=== PATIENT | female | born 1975 ===

== ENCOUNTER 2016-06-25 23:48 | Emergency (ER) | payer OTHER ==
[2016-06-26 00:19] VITALS: BMI 31.3
[2016-06-26 00:21] VITALS: PULSE 95; RESP 18; TEMP 98.6; O2SAT 98
--- NOTE | 2016-06-26 00:25 | ED PDOC ---
Arrival/HPI - General Time Seen by Provider: 06/25/16 23:59 Historian: Patient - History of Present Illness Narrative History of Present Illness (Text): 06/26/16 00:23 This 41 yo female presents to this ED c/o right knee pain x HIRED HAND. Patient stated she slipped and fellt down on her right side. Patient stated she twisted her right knee. Denies head injury, neck pain, loc, back pain, hip pain, or ankle pain. Denies syncope, dizziness, or sob. Time/Duration: Prior to Arrival Context: Work Past Medical History - Provider Review Nursing Documentation Reviewed: Yes - Psychiatric Hx Substance Use: No Family/Social History - Physician Review Nursing Documentation Reviewed: Yes Family/Social History: No Known Family HX Smoking Status: Never Smoked Hx Alcohol Use: No Hx Substance Use: No Allergies/Home Meds Allergies/Adverse Reactions: Allergies No Known Allergies Allergy (Verified 06/26/16 00:18) Review of Systems - Review of Systems Constitutional: Normal. absent: Fatigue, Weight Change, Fevers Eyes: Normal ENT: Normal Respiratory: Normal Cardiovascular: Normal Gastrointestinal: Normal Genitourinary Female: Normal Musculoskeletal: Other ((+) righ knee pain) Skin: Normal Neurological: Normal Endocrine: Normal Hemo/Lymphatic: Normal Psychiatric: Normal Physical Exam Vital Signs Temp Pulse Resp BP Pulse Ox 06/26/16 00:19 98.6 F 95 H 18 127/54 L 98 Temperature: Afebrile Blood Pressure: Normal Pulse: Regular Respiratory Rate: Normal Appearance: Positive for: Well-Appearing, Non-Toxic, Comfortable Pain Distress: None Mental Status: Positive for: Alert and Oriented X 3 - Systems Exam Head: Present: Atraumatic, Normocephalic, Other (no raccoon sign. no escamilla sign) Pupils: Present: PERRL, Other (no hyphema) Extroacular Muscles: Present: EOMI Conjunctiva: Present: Normal Ears: Present: Normal, NORMAL TM, Normal Canal, Other (no hemotympanum). No: Erythema, TM Bulging, Fluid, TM Perf Mouth: Present: Moist Mucous Membranes Pharnyx: Present: Normal. No: ERYTHEMA, EXUDATE, TONSILS ENLARGED Nose (External): Present: Atraumatic Nose (Internal): Present: Normal Inspection Neck: Present: Normal Range of Motion, Trachea Midline. No: Meningeal Signs, MIDLINE TENDERNESS, Paraspinal Tenderness, Lymphadenopathy Respiratory/Chest: Present: Clear to Auscultation, Good Air Exchange. No: Respiratory Distress, Accessory Muscle Use, Wheezes, Retracting, Tender to Palpation Cardiovascular: Present: Regular Rate and Rhythm, Normal S1, S2. No: Murmurs Abdomen: Present: Normal Bowel Sounds. No: Tenderness, Distention, Peritoneal Signs Back: Present: Normal Inspection. No: CVA Tenderness Upper Extremity: Present: Normal Inspection, Normal ROM, NORMAL PULSES, Neurovascularly Intact, Capillary Refill < 2s. No: Cyanosis, Edema Lower Extremity: Present: Normal Inspection, NORMAL PULSES, Tenderness ((+) mild right anterior knee tenderness, No swelling, erythema, ecchymosis, or abrasion. ROM is reduced on right knee due to pain. noseptic knee joint.), Neurovascularly Intact, Capillary Refill < 2 s. No: Edema, Erythema, Deformity Neurological: Present: GCS=15, CN II-XII Intact, Speech Normal Skin: Present: Warm, Dry, Normal Color. No: Rashes Psychiatric: Present: Alert, Oriented x 3, Normal Insight, Normal Concentration Medical Decision Making ED Course and Treatment: 06/26/16 01:52 Patient is resting comfortably, and is in no acute distress. Patient was instructed to follow up with PMD in 1-2 days for further evaluation. Re-evaluation Time: 01:52 Reassessment Condition: Re-examined, Improved - RAD Interpretation Narrative RAD Interpretations (Text): 06/26/16 01:53 Knee x-rays: No Fx or sublux. Normal ST Radiology Orders: 06/26/16 00:25 KNEE W PATELLA RIGHT 3 VIEW [RAD] Stat - Medication Orders Current Medication Orders: Discontinued Medications Ibuprofen (Motrin Tab) 400 mg PO STAT STA Stop: 06/26/16 00:27 Last Admin: 06/26/16 00:50 Dose: 400 mg Disposition/Present on Arrival - Present on Arrival Any Indicators Present on Arrival: No History of DVT/PE: No History of Uncontrolled Diabetes: No Urinary Catheter: No History of Decub. Ulcer: No History Surgical Site Infection Following: None - Disposition Have Diagnosis and Disposition been Completed?: Yes Diagnosis: Knee strain Disposition: HOME/ ROUTINE Disposition Time: 01:54 Patient Plan: Discharge Condition: GOOD Discharge Instructions (ExitCare): Knee Pain (ED) Additional Instructions: Ayanna rai Worker comp para un seguimiento medico en 3-5 days. Mantenga elevado sandhu rodilla, aplique compresas diaz, y tome medicina com esta ordenado. Regrese a la emergencia si dolor empeora. Lame a Dr. [facility] si dolor de rodilla empeora, o persiste Prescriptions: Famotidine [Pepcid] 40 mg PO DAILY #10 tablet Naproxen 500 mg PO BID PRN #14 tab PRN Reason: Pain, Severe (8-10) Referrals: Barry Solano DO [Staff Provider] - Follow up with primary Forms: WORK NOTE
[2016-06-26 02:08] VITALS: BP 128/77
--- NOTE | 2016-06-26 08:46 | RAD ---
PROCEDURE: Right Knee Radiographs. HISTORY: pain s/p fall COMPARISON: None. FINDINGS: BONES: Normal. No fracture. JOINTS: Normal. No osteoarthritis. JOINT EFFUSION: None. OTHER FINDINGS: The patella is unremarkable IMPRESSION: Normal radiographs of the right knee.
== END 2016-06-26 02:13 | disposition home or self-care (01) ==
LOC: ED 23:48
DX: S86.911A Strain of unspecified muscle(s) and tendon(s) at lower leg level, right leg, initial encounter (principal); W01.0XXA Fall on same level from slipping, tripping and stumbling without subsequent striking against object, initial encounter; Y92.89 Other specified places as the place of occurrence of the external cause; Y99.8 Other external cause status

== ENCOUNTER 2017-06-27 22:49 | Emergency (ER) | payer SELFPAY ==
[2017-06-27 22:50] VITALS: BMI 31.3
[2017-06-27 23:19] VITALS: BP 118/68; PULSE 97; RESP 16; TEMP 98.5; O2SAT 99
--- NOTE | 2017-06-27 23:34 | ED PDOC ---
Arrival/HPI - General Chief Complaint: Alcohol Ingestion Time Seen by Provider: 06/27/17 22:53 Historian: Patient - History of Present Illness Narrative History of Present Illness (Text): 06/27/17 23:00 42 year old female, with no significant past medical history, presents to the Emergency department for alcohol intoxication prior to arrival. Patient admits to drinking alcohol tonight but denies any substance abuse. Family expresses to take patient home after medical clearance. Patient denies any somatic complaints including fever, chill, nausea, vomiting, diarrhea, abdominal pain, chest pain, or shortness of breath. Time/Duration: Prior to Arrival Symptom Onset: Gradual Symptom Course: Improving Activities at Onset: Light Context: Home Past Medical History - Provider Review Nursing Documentation Reviewed: Yes - Neurological Hx Neurological Disorder: No - HEENT Hx HEENT Disorder: No - Renal Hx Renal Disorder: No - Hematological/Oncological Hx Blood Disorders: No - Integumentary Hx Dermatological Disorder: No Hx Basal Cell Carcinoma: No - Musculoskeletal/Rheumatological Hx Musculoskeletal Disorders: No - Psychiatric Hx Substance Use: No - Anesthesia Hx Anesthesia: No Family/Social History - Physician Review Nursing Documentation Reviewed: Yes Family/Social History: No Known Family HX Smoking Status: Never Smoked Hx Alcohol Use: No Hx Substance Use: No Allergies/Home Meds Allergies/Adverse Reactions: Allergies No Known Allergies Allergy (Verified 06/27/17 23:17) Home Medications: Home Meds Medication Instructions Recorded Confirmed No Known Home Med 06/27/17 06/27/17 Review of Systems - Physician Review All systems were reviewed & negative as marked: Yes - Review of Systems Constitutional: Other (intoxicated). absent: Fevers Eyes: Normal ENT: Normal Respiratory: Normal. absent: SOB Cardiovascular: Normal. absent: Chest Pain Gastrointestinal: Normal. absent: Abdominal Pain, Diarrhea, Nausea, Vomiting Genitourinary Female: Normal Musculoskeletal: Normal Skin: Normal Neurological: Normal Endocrine: Normal Hemo/Lymphatic: Normal Psychiatric: Normal Physical Exam Vital Signs Reviewed: Yes Vital Signs Temp Pulse Resp BP Pulse Ox 06/27/17 23:18 98.5 F 97 H 16 118/68 99 Temperature: Afebrile Blood Pressure: Normal Pulse: Tachycardic Respiratory Rate: Normal Appearance: Positive for: Well-Appearing, Non-Toxic, Comfortable Pain Distress: None Mental Status: Positive for: Alert and Oriented X 3 - Systems Exam Head: Present: Atraumatic, Normocephalic Pupils: Present: PERRL Extroacular Muscles: Present: EOMI Conjunctiva: Present: Normal Respiratory/Chest: Present: Clear to Auscultation, Good Air Exchange. No: Respiratory Distress, Accessory Muscle Use Cardiovascular: Present: Regular Rate and Rhythm, Normal S1, S2. No: Murmurs Abdomen: No: Tenderness, Distention, Peritoneal Signs Upper Extremity: Present: Normal Inspection. No: Cyanosis, Edema Lower Extremity: Present: Normal Inspection. No: Edema Neurological: Present: GCS=15, CN II-XII Intact, Speech Normal Skin: Present: Warm, Dry, Normal Color. No: Rashes Psychiatric: Present: Alert, Oriented x 3, Intoxicated Medical Decision Making ED Course and Treatment: 06/27/17 23:36 Impression: 42 year old female presents to the Emergency department for alcohol intoxication. Differential Diagnosis included but are not limited to: alcohol intoxication Plan: -- Reassess and disposition Progress Notes: - Scribe Statement The provider has reviewed the documentation as recorded by the Scribe Lexi Booker. All medical record entries made by the Scribe were at my direction and personally dictated by me. I have reviewed the chart and agree that the record accurately reflects my personal performance of the history, physical exam, medical decision making, and the department course for this patient. I have also personally directed, reviewed, and agree with the discharge instructions and disposition. Disposition/Present on Arrival - Present on Arrival Any Indicators Present on Arrival: No History of DVT/PE: No History of Uncontrolled Diabetes: No Urinary Catheter: No History of Decub. Ulcer: No History Surgical Site Infection Following: None - Disposition Have Diagnosis and Disposition been Completed?: Yes Diagnosis: Alcohol abuse Disposition: HOME/ ROUTINE Disposition Time: 23:50 Condition: GOOD Discharge Instructions (ExitCare): Alcohol Abuse and Alcoholism (DC) Referrals: PCP,NO [Primary Care Provider] - Follow up with primary Forms: Data Stream [employer] (Malagasy)
== END 2017-06-27 23:48 | disposition home or self-care (01) ==
LOC: ED 22:49
DX: F10.129 Alcohol abuse with intoxication, unspecified (principal)